=== PATIENT | female | born 1965 | race Two or more races ===

== ENCOUNTER 2024-09-23 16:14 | Emergency (ER) | payer MEDICAID, OTHER ==
[~2024-09-23] VITALS: Ht 144.8 cm; Wt 70.1 kg
[2024-09-23 18:21] VITALS: BP 125/63; PULSE 98; RESP 18; TEMP 98.8; O2SAT 94
--- NOTE | 2024-09-23 18:59 | DVH ---
EXAM: XY R KNEE 3V XRAY HISTORY: right knee pain COMPARISON: None TECHNIQUE: 3 views of the right knee were performed. FINDINGS: No acute fracture is identified about the right knee. No significant joint space narrowing. Very ti ny joint effusion suprapatellar bursa IMPRESSION: 1. Very tiny joint effusion suprapatellar bursa
[2024-09-23] MEDS ORDERED: IBUP-1456 PO (19:13)
--- NOTE | 2024-09-23 19:13 | ED.PDOC ---
Musculoskeletal HPI Comments 58-year-old female presents to ER with complaints of right knee pain x three days. Patient reports that she tripped while walking up bleachers three days ago and landed on her right knee onto the metal bleachers and has since been experiencing pain/swelling to right knee. Denies head injury/LOC. She rates her current pain an 8/10 to right knee without radiation. Denies use of medications for current symptoms. Patient presents to ER ambulatory on arrival, favoring left leg on ambulation. Denies hip pain, numbness/tingling, calf pain, or any further symptoms/complaints Chief Complaint: Lower Extremity Time Seen by MD: 18:07 Primary Care Provider: [facility] Reviewed Notes: Nurses Notes, Medications, Allergies Allergies: Coded Allergies: NO KNOWN ALLERGIES (Unverified , 09/23/24) Home Meds Active Scripts Ibuprofen (Ibuprofen) 800 Mg Tab, 1 TAB PO TID PRN, #30 TAB 0 Refills Prov:ALENA PARK 09/23/24 Information Source: Patient Mode of Arrival: Ambulatory Past Medical History PAST MEDICAL HISTORY: Arthritis (RA) Surgical History: Cholecystectomy, , Hysterectomy FLOOR TECHNICIAN History: No Pertinent FLOOR TECHNICIAN History Family History Family History: Unknown Social History Smoker: Non-Smoker Alcohol: Denies ETOH Use Drugs: Denies Drug Use Lives In: Home Constitutional: denies: chills, diaphoresis, fatigue, fever, malaise, sweats, weakness, others EENTM: denies: blurred vision, double vision, ear bleeding, ear discharge, ear drainage, ear pain, ear ringing, eye pain, eye redness, hearing loss, mouth pain, mouth swelling, nasal discharge, nose bleeding, nose congestion, nose pain, photophobia, tearing, throat pain, throat swelling, voice changes, others Respiratory: denies: cough, hemoptysis, orthopnea, SOB at rest, shortness of breath, SOB with excertion, stridor, wheezing, others Cardiovascular: denies: chest pain, dizzy spells, diaphoresis, Dyspnea on exertion, edema, irregular heart beat, left arm pain, lightheadedness, palpitations, PND, syncope, others Gastrointestinal: denies: abdomen distended, abdominal pain, blood streaked bowels, constipated, diarrhea, dysphagia, difficulty swallowing, hematemesis, melena, nausea, poor appetite, poor fluid intake, rectal bleeding, rectal pain, vomiting, others Genitourinary: denies: abnormal vagina bleeding, burning, dyspareunia, dysuria, flank pain, frequency, hematuria, incontinence, pain, , vagina discharge, urgency, others Neurological: denies: dizziness, fainting, headache, left sided numbness, left sided weakness, numbness, paresthesia, pre-existing deficit, right sided numbness, right sided weakness, seizure, speech problems, tingling, tremors, weakness, others Musculoskeletal: reports: others ( STATED IN HPI) Integumetry: reports: others ( STATED IN HPI) Allergic/Immunocompromised: denies: Difficulty Healing, Frequent Infections, Hives, Itching, others Hematologic/Lymphatic: denies: anemia, blood clots, easy bleeding, easy bruising, swollen glands, others Endocrine: denies: excessive hunger, excessive sweating, excessive thirst, excessive urination, flushing, intolerance to cold, intolerance to heat, unexplained weight gain, unexplained weight loss, others Psychiatric: denies: anxiety, bipolar disorder, depression, hopeless, panic disorder, schizophrenia, sleepless, suicidal, others Physical Exam General Appearance: Mild Distress (Due to right knee pain), Obese HEENT: PERRL/EOMI Neck: Full Range of Motion, Non-Tender, Normal Respiratory: Chest Non-Tender, Lungs Clear, No Accessory Muscle Use, No Respiratory Distress, Normal Breath Sounds Cardiovascular: No Murmur, No Gallop, Regular Rate/Rhythm Breast Exam: Deferred Gastrointestinal: NOT DONE Genitalia: Deferred Pelvic: Deferred Rectal: Deferred Extremities: Normal capillary refill, Normal range of motion Musculoskeletal : Extremity Location: Knee (TTP/mild swelling noted to right anterior knee. No deformity/erythema/wounds noted. No other TTP to right leg noted. Patient favors left leg on ambulation due to pain localized to right anterior knee.) Neurologic: Alert, network operations lead II-XII nml as Tested, No Motor Deficits, No Sensory Deficits Cerebellar Function: Normal Reflexes: Normal Skin: Dry, Normal Color, Warm Peripheral Pulses: 2+ femoral (R), 2+ femoral (L), 2+ dorsalis pedis (R), 2+ dorsalis pedis (L) Lymphatic: No Adenopathy Was a procedure done? Was a procedure done?: No Sedation Sedation?: No Differential Diagnosis EXT Differential Diagnosis: Fracture, Dislocation, Neurovascular injury X-Ray, Labs, Meds, VS Vital Signs Date Time Temp Pulse Resp B/P (MAP) Pulse Ox O2 Delivery O2 Flow Rate FiO2 09/23/24 18:21 98 18 94 Room Air 09/23/24 18:21 98.8 98 18 125/63 (83) 94 98.8 09/23/24 16:29 98.8 98 18 125/63 (83) 94 98.8 PATIENT: ELI FORRESTERACCT: [id number]: [id number] : 1965 LOC: ER ROOM / BED: / AGE / SEX: 58 / F ADM STATUS: REG ER SERVICE 06 ORDERING PHYSICIAN: ALENA PARK PROCEDURE(s): RKN3 - R KNEE 3V XRAY REASON: right knee pain ORDER NUMBER(s): [id number], ACCESSION NUMBER(s): [id number] EXAM: XY R KNEE 3V XRAY HISTORY: right knee pain COMPARISON: None TECHNIQUE: 3 views of the right knee were performed. FINDINGS: No acute fracture is identified about the right knee. No significant joint space narrowing. Very tiny joint effusion suprapatellar bursa IMPRESSION: 1. Very tiny joint effusion suprapatellar bursa ATED BY: TRACEY BALLARD MD DICTATED DATE/TIME: 09/23/241855 SIGNED BY: TRACEY BALLARD MD SIGNED DATE/TIME: 09/23/241855 CC: Right knee x-ray reviewed Right knee immobilizer applied Patient neurovascularly intact Advised on rest/ no strenuous activity, elevation and alternate ice on/off as needed for pain/swelling Advised to follow up with orthopedics in one week if symptoms do not improve Advised to follow up with PCP in 1-2 days Patient verbalized understanding and agreeable with current plan of care Advised to return to ER immediately if symptoms worsen Images Reviewed?: Images reviewed and evaluated by me Time of 1ST Reevaluation: 18:54 Reevaluation 1ST: N/A Patient Education/Counseling: Diagnosis, Treatment, Prognosis, Need For Follow Up Family Education/Counseling: No Family Present Departure 1 Departure Time of Disposition: 19:12 Impression: Primary Impression: Effusion of knee joint right Disposition: HOME / SELF CARE / HOMELESS Condition: Stable e-Prescriptions Ibuprofen (Ibuprofen) 800 Mg Tab 1 TAB PO TID PRN, #30 TAB 0 Refills Prov: ALENA PARK 09/23/24 Discharged With: Self Critical Care Note Critical Care Time?: No Stability Stability form required: No Heart Score Heart Score: Heart Score Response (Comments) Value History N/A 0 EKG N/A 0 Age N/A 0 Risk Factors N/A 0 Troponin N/A 0 Total 0 ALENA PARK Sep 23, 2024 19:13
== END 2024-09-23 19:27 | disposition home or self-care (01) ==
LOC: ER 16:14
DX: M25.461 Effusion, right knee (principal); M06.9 Rheumatoid arthritis, unspecified; Z90.710 Acquired absence of both cervix and uterus; Z90.49 Acquired absence of other specified parts of digestive tract
CPT/HCPCS: 29505; 73562